=== PATIENT | female | born 1975 | race Asian ===

== ENCOUNTER 2019-05-03 04:34 | Day surgery (SDC) | payer OTHER ==
[2019-05-02 11:19] VITALS: BMI 27.8
[2019-05-03] MEDS ORDERED: DEXAMETHASONE SOD PHOSPHATE 4 MG/1 ML VIAL ONE (14:02)
[2019-05-03] MEDS ORDERED: KETOROLAC TROMETHAMINE 30 MG/1 ML VIAL ONE (14:02)
[2019-05-03] MEDS ORDERED: MIDAZOLAM HCL 2 MG/2 ML SINGLE DOSE VIAL ONE (14:02)
[2019-05-03] MEDS ORDERED: PROPOFOL 20 ML ONE ×2 (14:02)
[2019-05-03] MEDS ORDERED: LIDOCAINE HCL/PF 2% SDV 5ML VIAL ONE (14:02)
--- NOTE | 2019-05-03 14:09 | HP ---
History & Physical Update - Physical Physical: No Change - Assessment Assessment: No Change - Plan Plan: No Change (H&P reviwed , no changes for hysteroscopy D&C, polypectomy)
[2019-05-03] MEDS ORDERED: IBUPROFEN 800 MG/8 ML IJ IVPB PRN (14:11)
[2019-05-03] MEDS ORDERED: IBUPROFEN 600 MG TABLET (FP) PO PRN (14:11)
[2019-05-03] MEDS ORDERED: oxyCODONE HCL 5 MG TABLET PO PRN ×2 (14:11→15:05)
[2019-05-03] MEDS ORDERED: ONDANSETRON 4 MG/2 ML VIAL IVPUSH PRN ×2 (14:11→15:05)
[2019-05-03] MEDS ORDERED: ELECTROLYTE-148 SOLN 1,000 ML IV SCH (14:15)
[2019-05-03] MEDS ORDERED: PROMETHAZINE HCL 25 MG/1 ML VIAL IVPUSH PRN (15:05)
[2019-05-03 16:50] VITALS: BP 125/76; PULSE 84; TEMP 97.8
--- NOTE | 2019-05-07 11:23 | PATH ---
Surgical Pathology Report Patient Name: IVAN FARNSWORTH [facility]. Rec. #: [id number] /Age/Gender: 1975 (Age: 44) / F Account: [id number] Location: [facility] SURGICAL Taken: 05/03/2019 Received: 05/06/2019 Reported: 05/07/2019 Physicians: Mk Shah M.D. Specimen(s) Received ENDOMETRIAL CURETTINGS Clinical History Endometrial polyp Final Diagnosis ENDOMETRIAL CURETTINGS AND POLYP, EXCISION: ENDOMETRIAL POLYP. SEPARATE PROLIFERATIVE ENDOMETRIUM. SEPARATE ENDOCERVICAL TISSUE AND SQUAMOUS EPITHELIUM WITH NO SIGNIFICANT PATHOLOGIC CHANGE. Electronically Signed Sujatha Tello M.D. Gross Description Received in formalin labeled "endometrial curetting," is a 4.2 x 3.2 x 0.4 cm aggregate of santana-brown soft tissue fragments admixed with blood clot. The formalin is filtered and the specimen is entirely submitted in 2 cassettes. /05/06/2019 saudi05/06/2019
--- NOTE | 2019-05-21 21:50 | OP ---
DATE OF OPERATION: 05/03/2019 PREOPERATIVE DIAGNOSIS: Submucous myoma. PROCEDURE: Hysteroscopy, dilation and curettage, and resection of submucous myoma. SURGEON: Mk Shah MD ANESTHESIA: General. ESTIMATED BLOOD LOSS: 50 mL. OPERATION: Patient was taken to operating room under adequate general anesthesia in dorsal lithotomy position. Examination under anesthesia revealed external genitalia to be normal. Vagina was normal. Cervix was clean, no gross lesion. Uterus was normal size. Adnexa, no masses palpable. Then with a weighted speculum in the vagina, anterior lip of cervix was grasped with single-tooth tenaculum. Uterine cavity was sounded to 8 cm. Then cervix was slightly dilated and then Symphion hysteroscope was introduced. Visualization of endocervical canal appeared to be normal. Endometrium was atrophic. There was a submucous myoma at the fundal area of the uterus which was seen. Both cornual regions were identified. Then with the Symphion resectoscope, the submucous myoma was resected and removed in its entirety and suctioned, then D&C was done. Patient tolerated procedure well, left the OR in good condition. MK SHAH M.D. [id number]
== END 2019-05-03 16:55 | disposition home or self-care (01) ==
LOC: JASU-SURG 04:34
PROVIDERS: ATTEND Obstetrics & Gynecology
PROC: 0UJD8ZZ Inspection of Uterus and Cervix, Via Natural or Artificial Opening Endoscopic (ICD-10-PCS; 2019-05-03)
PROC: 0UB97ZX Excision of Uterus, Via Natural or Artificial Opening, Diagnostic (ICD-10-PCS; principal; 2019-05-03 14:00)
PROC: 0UDB7ZX Extraction of Endometrium, Via Natural or Artificial Opening, Diagnostic (ICD-10-PCS; 2019-05-03 14:00)
DX: D25.0 Submucous leiomyoma of uterus (principal)
CPT/HCPCS: 84703; 88305-TC; 94760